=== PATIENT | male | born 1990 | race Caucasian/White ===

== ENCOUNTER → 2024-02-08 | Outpatient (CLI) | payer OTHER, SELFPAY | END | disposition home or self-care (01) | PROVIDERS: Referring Provider Emergency Medicine; Visit Provider Emergency Medicine | DX: J02.9 Acute pharyngitis, unspecified (principal) | CPT/HCPCS: 87651 ==

== ENCOUNTER → 2025-08-31 | Outpatient (CLI) | payer OTHER, SELFPAY ==
--- NOTE | 2025-08-31 10:16 | RAD_ITS ---
PROCEDURE: CHEST PA AND LATERAL 08/31/2025 REASON FOR EXAM: COUGH WORSENING X7 DAYS WITH FEVER TECHNIQUE: Procedure Code: RADCXR Modality: DX Procedure: CHEST PA AND LATERAL FINDINGS: The lungs are clear. The cardiomediastinal silhouette appears unremarkable. No acute osseous abnormality. RAD/Chest PA and Lateral IMPRESSION: As above. Reading Location: [id number]
== END | disposition home or self-care (01) ==
LOC: MTRAD 10:16
PROVIDERS: PCP Family Medicine; Referring Provider Physician Assistant Surgical; Visit Provider Physician Assistant Surgical
DX: J20.9 Acute bronchitis, unspecified (principal)
CPT/HCPCS: 71046